=== PATIENT | female | born 1965 | race African-American/Black ===

== ENCOUNTER 2022-05-07 23:42 | Emergency (ER) | payer OTHER ==
[~2022-05-07] VITALS: Ht 165.1 cm; Wt 80.3 kg
[~2022-05-07 23:42] MED LIST: AMITRIPTYLINE H25 MG PO; ATIVAN0.5 MG PO; HUMALOG KW200 UNIT/1 SC; Insulin Glargine SQ; LIPITOR20 MG PO; MELOXICAM7.5 MG PO; METOCLOPRAMIDE10 MG PO; TOPAMAX25 MG PO; TRAZODONE HCL50 MG PO; ZOLOFT50 MG PO
[2022-05-08] MEDS ORDERED: ONDANSETRON HCL INJ 2MG/ML 2ML 2 MG/ML VIAL IV STA (00:10)
[2022-05-08] MEDS ORDERED: Morphine 4mg INJECTION 4 MG/ML INJ IV ONE (00:15)
[2022-05-08] MEDS ORDERED: SODIUM CHLORIDE 0.9% 1000ML 1,000 ML IV SCH (00:15)
[2022-05-08] MEDS ORDERED: ONDANSETRON HCL INJ 2MG/ML 2ML 2 MG/ML VIAL ONE (00:31)
[2022-05-08] MEDS ORDERED: Morphine 4mg INJECTION 4 MG/ML INJ ONE (00:31)
[2022-05-08] MEDS ORDERED: SODIUM CHLORIDE 0.9% 1000ML 1,000 ML ONE (00:31)
[2022-05-08] MEDS ORDERED: METOCLOPRAMIDE HCL 10 MG/2ML VIAL IV ONE (01:15)
[2022-05-08] MEDS ORDERED: FAMOTIDINE 20 MG/2 ML VIAL IV STA (01:20)
[2022-05-08] MEDS ORDERED: DICYCLOMINE HCL 20 MG/2 ML VIAL IM ONE ×2 (01:30→01:38)
[2022-05-08] MEDS ORDERED: METOCLOPRAMIDE HCL 10 MG/2ML VIAL ONE (01:30)
[2022-05-08] MEDS ORDERED: DICYCLOMINE HCL20 MG PO (01:37)
[2022-05-08] MEDS ORDERED: ONDANSETRON ODT4 MG PO (01:37)
== END 2022-05-08 02:30 | disposition home or self-care (01) ==
LOC: FSED 23:52
DX: R10.84 Generalized abdominal pain (principal); R11.2 Nausea with vomiting, unspecified; E11.65 Type 2 diabetes mellitus with hyperglycemia; R19.7 Diarrhea, unspecified
CPT/HCPCS: 74176; 80053; 81003; 82553; 84484; 93005; 99284; J0500; J2270; J2405; J2765; J7030

== ENCOUNTER 2022-09-01 21:38 | Emergency (ER) | payer OTHER ==
[~2022-09-01] VITALS: Ht 165.1 cm; Wt 81.6 kg
[~2022-09-01 21:38] MED LIST changes: +DICYCLOMINE HCL20 MG PO; +ONDANSETRON ODT4 MG PO
[2022-09-01] MEDS ORDERED: TETANUS/DIPHTHERIA TOX ADULT 0.5 ML SYR IM STA (22:04)
[2022-09-01] MEDS ORDERED: LIDOCAINE HCL 1% LOCAL INJ 20 ML VIAL INJ STA (22:04)
[2022-09-01] MEDS ORDERED: CEPHALEXIN MONOHYDRATE 250 MG CAP PO STA (22:04)
[2022-09-01] MEDS ORDERED: ACETAMINOPHEN 325 MG TAB PO ONE (22:15)
[2022-09-01] MEDS ORDERED: MUPIROCIN 2% OINT 22 GM TUBE TOP ONE (22:15)
[2022-09-01] MEDS ORDERED: KETOROLAC TROMETHAMINE 30 MG/ML VIAL IM ONE (22:30)
[2022-09-01] MEDS ORDERED: ACETAMINOPHEN500 MG PO (22:38)
[2022-09-01] MEDS ORDERED: IBUPROFEN200 MG PO (22:38)
[2022-09-01] MEDS ORDERED: CLEOCIN HCL300 MG PO (22:38)
[2022-09-01] MEDS ORDERED: ACETAMINOPHEN 325 MG TAB ONE (22:47)
[2022-09-01] MEDS ORDERED: BACITRACIN ZINC 0.9GM TP ONE (22:47)
[2022-09-01] MEDS ORDERED: KETOROLAC TROMETHAMINE 30 MG/ML VIAL ONE (22:47)
[2022-09-01] MEDS ORDERED: TETANUS/DIPHTHERIA TOX ADULT 0.5 ML SYR ONE (22:48)
[2022-09-01] MEDS ORDERED: LIDOCAINE HCL 1% LOCAL INJ 20 ML VIAL ONE (22:48)
[2022-09-01] MEDS ORDERED: CEPHALEXIN MONOHYDRATE 250 MG CAP ONE (23:01)
[2022-09-01 23:14] VITALS: BP 178/99
== END 2022-09-01 23:14 | disposition home or self-care (01) ==
LOC: FSED 21:49
DX: S01.511A Laceration without foreign body of lip, initial encounter (principal); W01.0XXA Fall on same level from slipping, tripping and stumbling without subsequent striking against object, initial encounter; Y93.K1 Activity, walking an animal; Y92.89 Other specified places as the place of occurrence of the external cause
CPT/HCPCS: 12011; 90471; 90714; 96372; 99283; J1885; J2001

== ENCOUNTER 2022-09-09 16:14 | Emergency (ER) | payer OTHER ==
[~2022-09-09] VITALS: Ht 165.1 cm; Wt 81.6 kg
[~2022-09-09 16:14] MED LIST changes: +ACETAMINOPHEN500 MG PO; +CLEOCIN HCL300 MG PO; +IBUPROFEN200 MG PO
[2022-09-09] MEDS ORDERED: AZITHROMYCIN250 MG PO (17:30)
[2022-09-09] MEDS ORDERED: PREDNISONE20 MG PO (17:30)
[2022-09-09] MEDS ORDERED: VENTOLIN HFA18 GM INH (17:30)
== END 2022-09-09 17:45 | disposition home or self-care (01) ==
LOC: FSED 16:35
DX: Z48.02 Encounter for removal of sutures (principal); R05.9 Cough, unspecified
CPT/HCPCS: 71046; 83518; 87400; 99283; S0630

== ENCOUNTER 2022-09-14 17:35 | Emergency (ER) | payer OTHER ==
[~2022-09-14] VITALS: Ht 165.1 cm; Wt 81.6 kg
[~2022-09-14 17:35] MED LIST changes: +AZITHROMYCIN250 MG PO; +PREDNISONE20 MG PO; +VENTOLIN HFA18 GM INH
[2022-09-14 19:18] VITALS: BP 180/88
== END 2022-09-14 19:18 | disposition home or self-care (01) ==
LOC: FSED 17:48
DX: S90.31XA Contusion of right foot, initial encounter (principal); W10.8XXA Fall (on) (from) other stairs and steps, initial encounter; Y93.01 Activity, walking, marching and hiking; Y92.89 Other specified places as the place of occurrence of the external cause; E11.65 Type 2 diabetes mellitus with hyperglycemia
CPT/HCPCS: 70450; 80053; 85025; 99283